=== PATIENT | male | born 2000 | race Caucasian/White ===

== ENCOUNTER 2020-04-08 08:36 | Outpatient (CLI) | payer OTHER ==
[~2020-04-08] VITALS: Ht 172.7 cm; Wt 70.8 kg
[2020-04-08] VITALS (7 sets, daily range): BP systolic 95–122; BP diastolic 58–82; PULSE 62–87; TEMP 97.9
[2020-04-08 09:27] LABS: HEMATOCRIT 48.5 % (36.0-47.0); HEMOGLOBIN 16.5 g/dl (12.5-16.1); MEAN CELL VOLUME 84 fl (80.0-95.0); MEAN CORPUSCULAR HEMOGLOBIN 29 pg (26.0-32.0); MEAN CORPUSCULAR HGB CONC 34 g/dl (33.0-37.0); MEAN PLATELET VOLUME 10.4 fl (7.4-10.4); PLATELET COUNT 223 K/mm3 (130-400); RED BLOOD COUNT 5.75 M/mm3 (4.20-5.60)
[2020-04-08 09:32] LABS: CALCIUM 9.8 mg/dL (8.4-10.2); CREATININE, serum 1.06 (0.66-1.25); POTASSIUM 4.1 mmol/L (3.4-5.0)
[2020-04-08 09:44] LABS: PROTHROMBIN TIME 11.4 SECONDS (9.7-12.8)
--- NOTE | 2020-04-08 12:15 | NUR ---
Discharge instructions given to pt.pt verbalizes understanding.INT removed,catheter tip intact.Pt escorted out via wheelchair by this nurse.
== END 2020-04-08 12:51 | disposition home or self-care (01) ==
LOC: COL.RAD
PROVIDERS: Internal Medicine Adult Congenital Heart Disease
DX: I45.10 Unspecified right bundle-branch block (principal)
CPT/HCPCS: J2704; J7120

== ENCOUNTER → 2020-04-19 | Outpatient (CLI) | payer OTHER | LOC: COL.RAD 10:25 | DX: G47.8 Other sleep disorders (principal); R20.0 Anesthesia of skin ==

== ENCOUNTER 2020-06-02 06:48 | Outpatient (CLI) | payer OTHER ==
[~2020-06-02] VITALS: Ht 172.8 cm; Wt 70.9 kg
[2020-06-02] MEDS ORDERED: OTC SLEEP AID PO (08:26)
[2020-06-02 08:31] VITALS: BP 146/77; PULSE 95; TEMP 99.4
[2020-06-02 09:45] VITALS: BP 116/65; PULSE 110
--- NOTE | 2020-06-02 09:50 | NUR ---
Discharge instructions given to pt.Pt verbalizes understanding.Pt escorted out via ambulatory by this nurse.
== END 2020-06-02 10:11 | disposition home or self-care (01) ==
LOC: COL.CAR 06:48
DX: I45.2 Bifascicular block (principal); Z91.048 Other nonmedicinal substance allergy status
CPT/HCPCS: C1764